=== PATIENT | female | born 1945 | race American Indian/Alaskan Native ===

== ENCOUNTER 2017-09-19 14:13 | Emergency (ER) | payer MEDICARE ==
[2017-09-19 14:13] VITALS: BMI 36.8
[2017-09-19 14:34] VITALS: RESP 18
--- NOTE | 2017-09-19 14:57 | ED PDOC ---
Arrival/HPI - General Chief Complaint: Upper Extremity Problem/Injury Time Seen by Provider: 09/19/17 14:53 Historian: Patient - History of Present Illness Narrative History of Present Illness (Text): 09/19/17 14:54 71 year old female, with no significant past medical history, who presents to the emergency department complaining of right shoulder pain since yesterday. Patient notes she was opening her freezer when she felt a sharp pain down her arm. Patient notes pain is worse with movement. Patient denies any fever, chills , chest pain, shortness of breath, nausea, vomiting, diarrhea, back pain, neck pain, headache, dizziness, or any other complaints. Time/Duration: 24 hours Symptom Onset: Sudden Symptom Course: Unchanged Activities at Onset: Light Context: Home Past Medical History - Provider Review Nursing Documentation Reviewed: Yes - Cardiac Hx Hypertension: Yes - Pulmonary Hx Respiratory Disorders: No - Neurological Hx Neurological Disorder: No - HEENT Hx HEENT Disorder: No - Renal Hx Renal Disorder: No - Endocrine/Metabolic Hx Hypothyroidism: Yes - Hematological/Oncological Hx Blood Disorders: No - Integumentary Hx Dermatological Disorder: No - Musculoskeletal/Rheumatological Hx Musculoskeletal Disorders: No - Gastrointestinal Hx Gastrointestinal Disorders: No - Genitourinary/Gynecological Hx Genitourinary Disorders: No - Psychiatric Hx Depression: No Hx Emotional Abuse: No Hx Physical Abuse: No Hx Substance Use: No - Surgical History Hx Hysterectomy: Yes - Anesthesia Hx Anesthesia: Yes Hx Anesthesia Reactions: No Hx Malignant Hyperthermia: No - Suicidal Assessment Feels Threatened In Home Enviroment: No Family/Social History - Physician Review Nursing Documentation Reviewed: Yes Family/Social History: Unknown Family HX Smoking Status: Never Smoked Hx Alcohol Use: No Hx Substance Use: No Hx Substance Use Treatment: No Allergies/Home Meds Allergies/Adverse Reactions: Allergies No Known Allergies Allergy (Verified 06/12/15 18:01) Home Medications: Home Meds Medication Instructions Recorded Confirmed Levothyroxine [Synthroid] 0.05 mg PO DAILY 11/09/11 06/12/15 Review of Systems - Physician Review All systems were reviewed & negative as marked: Yes - Review of Systems Constitutional: Normal Eyes: Normal ENT: Normal Respiratory: Normal. absent: SOB, Cough Cardiovascular: Normal. absent: Chest Pain Gastrointestinal: Normal. absent: Abdominal Pain, Diarrhea, Nausea, Vomiting Genitourinary Female: Normal. absent: Dysuria, Frequency Musculoskeletal: Other (rigth shoulder pain). absent: Back Pain, Neck Pain Skin: Normal. absent: Rash Neurological: Normal. absent: Headache, Dizziness Endocrine: Normal Hemo/Lymphatic: Normal Psychiatric: Normal Physical Exam - Physical Exam Narrative Physical Exam (Text): 09/19/17 14:58 Gen: VS reviewed, alert, well developed, well nourished, nontoxic, mild distress. ENT: normal pharynx. Eye: EOMI, PERRL. Ext: mild tenderness right shoulder. decreased ROM. Decreased internal roation. Lateral shoulder pain against resistance. no edema. Skin: good color, no rash, no cyanosis. Psych: responds appropriately to questions, normal affect. Physical Exam Limitations: Clinical Condition Vital Signs Reviewed: Yes Vital Signs Temp Pulse Resp BP Pulse Ox 09/19/17 16:00 98.2 F 68 18 131/78 99 09/19/17 14:32 98.3 F 71 18 133/82 98 Temperature: Afebrile Blood Pressure: Normal Pulse: Regular Respiratory Rate: Normal Appearance: Positive for: Well-Appearing, Non-Toxic, Comfortable Pain Distress: None Mental Status: Positive for: Alert and Oriented X 3 Medical Decision Making ED Course and Treatment: 09/19/17 15:01 Impression: 71 year old female presents to the emergency department with rt shoulder pain since yesterday. Plan: -- Xray rt shoulder -- Reassess and disposition Progress Notes: 09/19/17 15:44 right arm pain initiated by lifting, suspected rotator cuff injury, supportive care and follow up with ortho - RAD Interpretation Radiology Orders: 09/19/17 14:54 SHOULDER RIGHT [RAD] Stat - Scribe Statement The provider has reviewed the documentation as recorded by the Scribabel Urias All medical record entries made by the Scribe were at my direction and personally dictated by me. I have reviewed the chart and agree that the record accurately reflects my personal performance of the history, physical exam, medical decision making, and the department course for this patient. I have also personally directed, reviewed, and agree with the discharge instructions and disposition. Disposition/Present on Arrival - Present on Arrival Any Indicators Present on Arrival: No History of DVT/PE: No History of Uncontrolled Diabetes: No Urinary Catheter: No History of Decub. Ulcer: No History Surgical Site Infection Following: None - Disposition Have Diagnosis and Disposition been Completed?: Yes Diagnosis: Shoulder injury Disposition: HOME/ ROUTINE Disposition Time: 15:46 Patient Plan: Discharge Patient Problems: Current Active Problems Problem Status Onset Shoulder injury Acute Condition: GOOD Discharge Instructions (ExitCare): Rotator Cuff Injury Print Language: ROMANSH Additional Instructions: Follow up with an orthopedic surgeon. VERN VALENTINE, thank you for letting us take care of you today. Your provider was Dr. Jace Cruz and you were treated for PAIN IN ARM (R). The emergency medical care you received today was directed at your acute symptoms. If you were prescribed any medication, please fill it and take as directed. It may take several days for your symptoms to resolve. Return to the Emergency Department if your symptoms worsen, do not improve, or if you have any other problems. Please contact your doctor or call one of the physicians/clinics you have been referred to that are listed on the Patient Visit Information form that is included in your discharge packet. Bring any paperwork you were given at discharge with you along with any medications you are taking to your follow up visit. Our treatment cannot replace ongoing medical care by a primary care provider outside of the emergency department. Thank you for allowing the [facility] team to be part of your care today. If you had an X-Ray or CT scan: A Radiologist will review the ED reading if any change in treatment is needed we will contact you. If you had a blood, urine, or wound culture: It will take several days for the results, if any change in treatment is needed we will contact you. If you had an STI test: It will take 48 hours for the results. Please call after 1 week if you have not heard back. Referrals: Chris Bhakta DO [Staff Provider] - Follow up with primary Forms: [employer] (Kyr[place]z), WORK NOTE
--- NOTE | 2017-09-19 15:30 | RAD ---
Date of service: 09/19/2017 PROCEDURE: Radiographs of the Right Shoulder HISTORY: Pain COMPARISON: No prior. FINDINGS: BONES: Bone alignment and mineralization are normal. There is no acute displaced fracture or bone destruction. JOINTS: Normal. Glenohumeral and acromioclavicular joints preserved. No osteoarthritis. SOFT TISSUES: Normal. OTHER FINDINGS: None. IMPRESSION: No acute fracture or dislocation.
[2017-09-19 16:01] VITALS: BP 131/78; PULSE 68; TEMP 98.2; O2SAT 99
== END 2017-09-19 16:10 | disposition home or self-care (01) ==
LOC: ED 14:13
DX: S49.91XA Unspecified injury of right shoulder and upper arm, initial encounter (principal); X58.XXXA Exposure to other specified factors, initial encounter; Y92.9 Unspecified place or not applicable

== ENCOUNTER 2018-06-04 07:32 | Outpatient (CLI) | payer MEDICARE | END 2018-06-04 07:33 | disposition home or self-care (01) | LOC: CARDIO 07:32 | DX: I51.7 Cardiomegaly (principal) ==

== ENCOUNTER 2018-06-24 10:23 | Day surgery (SDC) | payer MEDICARE | END 2018-06-24 16:37 | disposition home or self-care (01) | LOC: ENDO 10:23 | DX: Z80.0 Family history of malignant neoplasm of digestive organs (principal) ==